=== PATIENT | male | born 1995 | race Caucasian/White ===

== ENCOUNTER 2023-07-25 15:34 | Emergency (ER) | payer OTHER, SELFPAY ==
--- NOTE | 2023-07-25 15:35 | ED.URI ---
HPI - URI/Sore Throat General Chief Complaint: Upper Respiratory Infection Stated Complaint: Sore Throat, Cough, Lethargic Time Seen by Provider: 07/25/23 15:35 Source: patient Mode of arrival: ambulatory Limitations: no limitations History of Present Illness HPI Narrative: Osvaldo is a 28-year-old male patient presenting to the clinic today with complaints of sore throat, body aches, feeling feverish, cough, diarrhea, and fatigue x4 days. He reports no chest pain or shortness of breath. MD elicited complaint: sore throat and nasal congestion Related Data Allergies Allergy/AdvReac Type Severity Reaction Status Date / Time NKDA Allergy Unknown Other Uncoded 07/25/23 15:42 Review of Systems Review of Systems: Pertinent positives per HPI. Patient denies any rash, headache, visual changes, dizziness, shortness of breath, chest pain, palpitations, nausea, vomiting, constipation, abdominal pain, or any urinary issues. PMFSH Past Medical History Medical History Anxiety Depression Surgical History Surgical History History of tonsillectomy Family History Family History Mother Depression Thyroid disease Father Depression Social History Social History Smoking status: Never smoker Alcohol intake: current Drinks per week: 2 Living arrangements: with family Occupation/Education: occupation Gender identity (if verbalized by the patient): Male Comments At the time of my signature, I reviewed and agree with the nursing past medical, surgical, social, and family history. There is no relevant family history pertinent to the patient complaint. Exam Narrative: General: Well-developed, well nourished, in no apparent distress Head: Normocephalic, atraumatic Eyes: Pupils equally round and reactive to light bilaterally, EOM intact, sclera and conjunctive clear, no discharge, lids normal Ears: TMs intact and clear, ear canals clear, no drainage, grossly hearing normal. Nose: Nares patent, clear discharge, no inflammation, no sinus tenderness. Mouth: Oral pharynx red without lesions or masses, good dentition, MMM. Tonsils surgically absent, postnasal Neck: Supple, trachea midline, no enlargement of anterior or posterior cervical nodes, no thyroid masses or goiter palpable. Cardio: Regular rate and rhythm, s1 and s2 normal, no murmur appreciated. Resp: Clear to auscultation bilaterally, no rhonchi, rales, wheezing or rubs Course Course Emergency Course: Portions of this record may have been created with voice recognition software. Level of Care: Express Care Visit Vital Signs Vital signs: Vital signs reviewed MDM - URI/Sore Throat MDM Narrative Medical decision making narrative: At the time of visit patient is resting comfortably on the exam table. Patient appears to be nontoxic. Labs: COVID, influenza, and strep test was performed. Strep test was negative. We will send strep for culture. Plan: I suspect the patient has URI/pharyngitis/viral syndrome. Supportive measures were discussed with the patient and they voiced understanding discharge instructions and agrees to treatment plan. Return precautions reviewed Differential Diagnosis Differential diagnosis: Likely upper respiratory infection, otitis media, sinusitis, viral infection, bronchitis, influenza, pharyngitis and other (COVID) Discharge Plan Discharge Clinical Impression: Viral infection Upper respiratory infection Qualifiers: URI type: unspecified URI Qualified Code(s): J06.9 - Acute upper respiratory infection, unspecified Pharyngitis Qualifiers: Pharyngitis/tonsillitis etiology: unspecified etiology Qualified Code(s): J02.9 - Acute pharyngitis, unspecified Patient Disposition: Home,
[2023-07-25 15:46] VITALS: BP 151/88; PULSE 64; RESP 16; TEMP 36.4; O2SAT 99
== END 2023-07-25 16:20 | disposition home or self-care (01) ==
PROVIDERS: Emergency Provider Nurse Practitioner Family; PCP Physician Assistant Medical
DX: B34.9 Viral infection, unspecified (principal); J06.9 Acute upper respiratory infection, unspecified; J02.9 Acute pharyngitis, unspecified; Z20.822 Contact with and (suspected) exposure to COVID-19; F41.9 Anxiety disorder, unspecified; F32.A Depression, unspecified
CPT/HCPCS: 87081; 87426; 87804; 87880; 99213; G0463

== ENCOUNTER 2024-03-21 13:32 | Emergency (ER) | payer OTHER, SELFPAY ==
[2024-03-21 13:43] VITALS: BP 129/91; PULSE 61; RESP 18; TEMP 36.6; O2SAT 100
--- NOTE | 2024-03-21 13:49 | ED.URI ---
HPI - URI/Sore Throat General Chief Complaint: Upper Respiratory Infection Stated Complaint: cough and cold symptoms Time Seen by Provider: 03/21/24 13:49 Source: patient, RN notes reviewed and old records reviewed Mode of arrival: ambulatory Limitations: no limitations History of Present Illness HPI Narrative: 29-year-old male to Express Care with complaint of body aches, fatigue, cough, cold sweats for over 1.5 weeks. Patient has attempted to treat at home with Mucinex. Patient denies fever, nausea, vomiting, bowel changes, urinary changes, sore throat, shortness of breath, headache, ear pain, allergies, pertinent medical history. Patient able to tolerate fluids by mouth. Patient resting in exam room in no acute distress, appears tired. Respirations even and nonlabored. Patient able to speak in short sentences due to actively coughing in exam room. Related Data Allergies Allergy/AdvReac Type Severity Reaction Status Date / Time No Known Allergies Allergy Verified 03/21/24 13:55 Review of Systems Review of Systems: All systems reviewed & are unremarkable except as noted in HPI and below Constitutional: Constitutional: Reports as per HPI, Reports body ache(s) and Reports fatigue Eyes: Eyes: Reports no additional eye complaints ENT: Reports system reviewed and no additional complaints, except as documented Cardiovascular: Cardiovascular: Reports no additional cardiovascular complaints, Denies chest pain and Denies dyspnea Respiratory: Respiratory: Reports as per HPI, Reports cough and Denies dyspnea Musculoskeletal: Musculoskeletal: Reports no additional musculoskeletal complaints Neurologic: Reports system reviewed and no additional complaints, except as documented Psychiatric: Psychiatric: Reports no additional psychiatric complaints [facility] Past Medical History Medical History Anxiety Depression Surgical History Surgical History History of tonsillectomy History of wisdom tooth extraction 09/2022 Family History Family History Mother Depression Thyroid disease Father Depression Social History Social History Smoking status: Never smoker Alcohol intake: current Drinks per week: 2 Living arrangements: with family Occupation/Education: occupation Gender identity (if verbalized by the patient): Male Comments At the time of my signature, I reviewed and agree with the nursing past medical, surgical, social, and family history. There is no relevant family history pertinent to the patient complaint. Exam Const: General: cooperative, no acute distress, well developed, alert, tired appearing, uncomfortable, well groomed and well nourished Nutritional Appearance: well nourished Orientation/consciousness: patient oriented x3 Limitations: no limitations HENMT: Head: normal to inspection Ears: external ears normal Face/Nose/Sinus: Normal external nose present, Abnormal mucous membranes and turbinates present boggy and erythematous, normal facial exam, No erythema and No edema Face and sinus: normal facial exam, no erythema and no edema Mouth: Yes Normal oral and palatal mucosa present Throat: posterior oropharynx abnormal erythema and postnasal drainage Eyes: General: appearance normal, both eyes and all related structures Neck: Neck: normal visual inspection, full ROM and no meningeal signs Lymphatic: no lymphadenopathy noted and no lymphedema noted Chest: Chest palpation & inspection: normal inspection of the chest Resp: Effort & Inspection: normal respiratory effort and able to speak in complete sentences Auscultation: clear to auscultation bilaterally Cardio: Jugular venous distension: no JVD Rate: regular rate Rhythm: regular rhythm Back/Spin
== END 2024-03-21 14:10 | disposition home or self-care (01) ==
PROVIDERS: Emergency Provider Nurse Practitioner Family
DX: J40 Bronchitis, not specified as acute or chronic (principal); F41.8 Other specified anxiety disorders
CPT/HCPCS: 99213; G0463